=== PATIENT | female | born 1950 | race Hispanic/Latino ===

== ENCOUNTER 2016-10-31 08:47 | Outpatient (CLI) | payer MEDICARE | END 2016-10-31 08:48 | disposition home or self-care (01) | LOC: LABHHL 08:47 | PROVIDERS: ATTEND Internal Medicine | DX: D51.0 Vitamin B12 deficiency anemia due to intrinsic factor deficiency (principal); E78.2 Mixed hyperlipidemia; M81.0 Age-related osteoporosis without current pathological fracture; E66.3 Overweight | CPT/HCPCS: 36415; 80061 ==

== ENCOUNTER 2018-08-26 08:24 | Outpatient (CLI) | payer MEDICARE ==
[2018-08-26 11:37] LABS: Chol/HDL Ratio 3.95 %
[2018-09-01 06:24] LABS: Vitamin D, 25-OH, D2 SEE SCANNED RESULT
== END 2018-08-26 08:25 | disposition home or self-care (01) ==
LOC: LAB 08:24
PROVIDERS: ATTEND Internal Medicine
DX: Z00.01 Encounter for general adult medical examination with abnormal findings (principal); E78.2 Mixed hyperlipidemia; I10 Essential (primary) hypertension; E66.01 Morbid (severe) obesity due to excess calories; M81.0 Age-related osteoporosis without current pathological fracture; D51.9 Vitamin B12 deficiency anemia, unspecified; L40.0 Psoriasis vulgaris
CPT/HCPCS: 36415; 80061; 82306

== ENCOUNTER 2018-09-22 08:57 | Outpatient (CLI) | payer MEDICARE ==
--- NOTE | 2018-09-22 10:02 | Mammography Report ---
BILATERAL MAMMOGRAM: FINDINGS: The breasts are almost entirely fat (<25% glandular). No mass, distortion, suspicious calcification, or skin change is seen. No significant change when compared to a screen film mammogram from outside facility in May 2008. CAD was utilized. IMPRESSION: Negative mammogram. There is no mammographic evidence of malignancy. RECOMMENDATION: Follow-up per ACS guidelines. BI-RADS CATEGORY: 1 = Negative ACR BI-RADS MAMMOGRAPHIC CODES: 0 = Needs additional imaging evaluation; 1 = Negative; 2 = Benign; 3 = Probably benign; 4 = Suspicious; 5 = Malignant; 6 = Known biopsy-proven malignancy COMMENT: 1. Dense breast tissue, i.e., adenosis, fibrocystic changes, etc., may obscure an underlying neoplasm. 2. Approximately 10% of cancers are not detected with mammography. 3. A negative mammography report should not delay biopsy if a clinically suspicious mass is present. COMMENT: Patient follow-up letters are generated in [employer].
== END 2018-09-22 08:58 | disposition home or self-care (01) ==
LOC: MAMMO 08:57
PROVIDERS: ATTEND Internal Medicine
DX: Z12.31 Encounter for screening mammogram for malignant neoplasm of breast (principal)
CPT/HCPCS: 77067

== ENCOUNTER 2018-12-16 08:50 | Outpatient (CLI) | payer MEDICARE ==
[2018-12-16 10:37] LABS: Chol/HDL Ratio 4.01 %
[2018-12-20 18:09] LABS: Vitamin D, 25-OH, D2 <4 ng/mL
== END 2018-12-16 08:51 | disposition home or self-care (01) ==
LOC: LAB 08:50
PROVIDERS: ATTEND Internal Medicine
DX: E78.2 Mixed hyperlipidemia (principal); E55.9 Vitamin D deficiency, unspecified
CPT/HCPCS: 36415; 80061; 82306

== ENCOUNTER 2019-04-21 09:52 | Outpatient (CLI) | payer MEDICARE | END 2019-04-21 09:53 | disposition home or self-care (01) | LOC: LAB 09:52 | PROVIDERS: ATTEND Internal Medicine | DX: Z00.00 Encounter for general adult medical examination without abnormal findings (principal); D51.9 Vitamin B12 deficiency anemia, unspecified; E78.5 Hyperlipidemia, unspecified; R73.9 Hyperglycemia, unspecified; Z13.29 Encounter for screening for other suspected endocrine disorder | CPT/HCPCS: 36415; 80053; 80061; 82607; 82728; 83036; 83550; 84443; 85025 ==

== ENCOUNTER 2019-05-11 08:54 | Outpatient (CLI) | payer MEDICARE ==
--- NOTE | 2019-05-11 09:43 | Ultrasound Report ---
LIMITED RUQ ABDOMINAL ULTRASOUND INDICATION: R94.5 ABNORMAL RESULTS OF LIVER FUNCTION STUDIES. COMPARISON: No relevant prior imaging study available. FINDINGS: Pancreas: Obscured by bowel gas. Abdominal Aorta: No significant abnormality. IVC: No significant abnormality. Liver: The liver measures 18.1 cm in length. The liver parenchyma is echogenic probably representing mild diffuse fatty infiltration. No focal mass.. Normal hepatopedal blood flow in the main portal ve in. Gallbladder: The gallbladder was contracted because the patient was not n.p.o. No gallstones or bilia ry dilatation is appreciated. Bile ducts: No significant abnormality. Common bile duct measures 2.3 mm. Right kidney: No significant abnormality visualized.. Free fluid: None. Additional Findings: None. IMPRESSION: Mild hepatomegaly with diffuse fatty infiltration.. Signer Name: Marcio Kline Jr, MD Signed: 05/11/2019 9:38 AM Workstation Name: [id number]
== END 2019-05-11 08:55 | disposition home or self-care (01) ==
LOC: US 08:54
PROVIDERS: ATTEND Internal Medicine
DX: R16.0 Hepatomegaly, not elsewhere classified (principal); K76.0 Fatty (change of) liver, not elsewhere classified
CPT/HCPCS: 76705

== ENCOUNTER 2019-06-16 09:51 | Outpatient (CLI) | payer MEDICARE ==
[2019-06-16 13:07] LABS: Alanine Aminotransferase 19 units/L (7-56); Albumin 3.9 g/dL (3.9-5); Bilirubin,Direct < 0.2 mg/dL (0-0.2)
== END 2019-06-16 09:52 | disposition home or self-care (01) ==
LOC: LAB 09:51
PROVIDERS: ATTEND Internal Medicine
DX: K76.0 Fatty (change of) liver, not elsewhere classified (principal)
CPT/HCPCS: 36415; 80076

== ENCOUNTER 2021-12-12 08:35 | Outpatient (CLI) | payer MEDICARE ==
[2021-12-12 12:03] LABS: Basophils % (Auto) 0.9 % (0.0-1.8); Eosinophils # (Auto) 0.2 K/mm3 (0.0-0.4); Hematocrit 38.9 % (30.3-42.9); Hemoglobin 13.2 gm/dl (10.1-14.3); Lymphocytes # (Auto) 1.6 K/mm3 (1.2-5.4); Lymphocytes % (Auto) 28.1 % (13.4-35.0); Mean Corpuscular HGB Conc 34 % (30-34); Mean Corpuscular Volume 95 fl (79-97); Monocytes # (Auto) 0.4 K/mm3 (0.0-0.8); Platelet Count 189 K/mm3 (140-440); Red Blood Count 4.11 M/mm3 (3.65-5.03); Red Cell Distribution Width 14.2 % (13.2-15.2)
[2021-12-12 12:14] LABS: Alanine Aminotransferase 25 units/L (7-56); Albumin 4.4 g/dL (3.9-5); HDL Cholesterol 63 mg/dL (40-59); LDL Cholesterol,Direct 98 mg/dL (50-130)
[2021-12-12 12:15] LABS: Bilirubin,Direct < 0.2 mg/dL (0-0.2)
== END 2021-12-12 08:36 | disposition home or self-care (01) ==
LOC: LABHHL 08:35
PROVIDERS: ATTEND Internal Medicine
DX: D64.9 Anemia, unspecified (principal); R94.5 Abnormal results of liver function studies; E78.2 Mixed hyperlipidemia
CPT/HCPCS: 36415; 80061; 80076; 85025